=== PATIENT | female | born 1995 | race African-American/Black ===

== ENCOUNTER 2019-05-26 16:33 | Emergency (ER) | payer OTHER ==
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
[2019-05-26 18:32] LABS: ABS Eosinophils 0.1 10^3/ul (0-0.6); ABS Lymphocytes 1.2 10^3/ul (1.0-4.8); ABS Monocytes 0.7 10^3/ul (0-0.8); ABS Neutrophils 2.5 10^3/ul (1.5-7.7); Eosinophil % 1.5 %; Hematocrit 36 % (35-47); Hemoglobin 11.7 g/dL (12.0-16.0); Lymphocyte % 26.7 %; Mean Corpuscular HGB Conc 33 g/dL (31-36); Mean Corpuscular Hemoglobin 27 pg (27-31); Mean Corpuscular Volume 81 fL (80-97); Mean Platelet Volume 8.9 fL (7.4-10.4); Nucleated Red Blood Cells % 0.1; Platelet Count 161 10^3/uL (150-450); Red Blood Count 4.41 10^6 /uL (3.70-4.87); Red Cell Distribution Width 15 % (10-15); White Blood Count 4.5 10^3/uL (3.5-10.8)
[2019-05-26] MEDS ORDERED: Raltegravir* 400 MG TAB PO ONE ×2 (18:41)
[2019-05-26] MEDS ORDERED: Tenofovir/Emtricitab 200/300 * TAB PO ONE ×2 (18:41→20:05)
[2019-05-26 18:48] LABS: Urine Appearance Cloudy; Urine Bacteria Absent (Absent); Urine Bilirubin Negative (Negative); Urine Blood Negative (Negative); Urine Color Yellow; Urine Glucose Negative (Negative); Urine Ketones Trace (Negative); Urine Nitrite Negative (Negative); Urine Protein 1+(30 mg/dL) (Negative); Urine Red Blood Cell Trace(0-2/hpf) (Absent); Urine Specific Gravity 1.033 (1.010-1.030); Urine Squamous Epithelial Cell Present (Absent); Urine Urobilinogen Negative (Negative); Urine White Blood Cell Trace(0-5/hpf) (Absent)
[2019-05-26 18:50] LABS: ALT 9 U/L (7-52); AST 16 U/L (13-39); Albumin 4.2 g/dL (3.2-5.2); Albumin/Globulin Ratio 1.6 (1-3); Alkaline Phosphatase 47 U/L (34-104); Anion Gap 5 mmol/L (2-11); BUN/Creatinine Ratio 13.6 (8-20); Blood Urea Nitrogen 11 mg/dL (6-24); CO2 Carbon Dioxide 25 mmol/L (22-32); Calcium 9.1 mg/dL (8.6-10.3); Chloride 107 mmol/L (101-111); EGFR African American 104.2 (>60); EGFR Non-African American 86.2 (>60); Globulin 2.6 g/dL (2-4); Glucose 80 mg/dL (70-100); Sodium 137 mmol/L (135-145); Total Protein 6.8 g/dL (6.4-8.9)
[2019-05-26 18:51] LABS: Acetaminophen < 15 mcg/mL; Alcohol < 10 mg/dL (<10); Salicylate < 2.50 mg/dL (<30)
[2019-05-26 18:56] LABS: HCG Pregnancy < 0.60 mIU/mL
[2019-05-26 19:04] LABS: TSH (Thyroid Stimulating Horm) 1.18 mcIU/mL (0.34-5.60)
[2019-05-26 19:06] LABS: Urine Benzodiazepine Screen None Detected (None Detect); Urine Opiates Screen None Detected (None Detect)
[2019-05-26 19:17] LABS: Hepatitis B Surface Antigen Negative (Negative)
[2019-05-26 19:34] LABS: Hepatitis B Surface Ab Not Immune (Immune)
[2019-05-26 19:35] LABS: Hepatitis C Antibody Negative (Negative)
[2019-05-26 19:37] LABS: HIV 4th Generation Nonreactive (Nonreactive)
[2019-05-26] MEDS ORDERED: cefTRIAXone VIAL(*) 500 MG VIAL IM ONE (19:39)
[2019-05-26] MEDS ORDERED: Lidocaine 1% MPF ** 5 ML VIAL IM ONE (19:39)
[2019-05-26] MEDS ORDERED: Azithromycin TAB* 250 MG PO ONE (19:39)
[2019-05-26 20:55] VITALS: BP 105/70
== END 2019-05-26 20:51 | disposition home or self-care (01) ==
LOC: ED 16:33
DX: T76.21XA Adult sexual abuse, suspected, initial encounter (principal)
CPT/HCPCS: 36415; 80053; 80307; 80320; 80329; 81003; 81015; 83605; 84443; 84702; 85025; 86706; 86803; 87086; 87340; 87389; 96372; 99284; A9270-GY; G0480; J0696